=== PATIENT | female | born 1985 | race Caucasian/White ===

== ENCOUNTER 2023-05-02 13:43 | Emergency (ER) | payer SELFPAY ==
[2023-05-02 14:08] VITALS: BP 140/83; PULSE 72; RESP 16; TEMP 36.4; O2SAT 100
== END 2023-05-02 20:00 | disposition left against medical advice (07) ==
DX: R10.9 Unspecified abdominal pain (principal)
CPT/HCPCS: 99199

== ENCOUNTER 2023-08-07 15:34 | Outpatient (CLI) | payer OTHER, SELFPAY ==
[2023-08-07 15:56] LABS: Basophils Percent Auto 0.4 % (0.2-1.2); Eosinophils Absolute Auto 0.4 K/mm3 (0-0.3); Eosinophils Percent Auto 4.4 % (0-4.4); Hematocrit 33.2 % (37.0-47.0); Hemoglobin 10.3 g/dL (12.0-15.0); Immature Granulocyte Absolute 0.03 K/mm3 (0.00-0.031); Immature Granulocyte Percent A 0.4 % (0-0.5); Lymphocytes Absolute Auto 1.82 K/mm3 (0.9-3.2); Lymphocytes Percent Auto 21.8 % (18.3-44.2); Mean Corpuscular Hemoglobin 26.5 pg (26-34); Mean Corpuscular Volume 85.6 fl (80-100); Mean Platelet Volume 9.3 fl (7.4-10.4); Monocytes Absolute Auto 0.7 K/mm3 (0.1-0.6); Monocytes Percent Auto 8.3 % (2.6-8.5); Neutrophils Absolute Auto 5.4 K/mm3 (1.3-6.7); Neutrophils Percent Auto 64.7 % (45.5-73.1); Platelet Count Result 215 k/mm3 (150-375); Red Blood Count 3.88 M/mm3 (4.2-5.4); Red Cell Distribution Width 14.1 % (11.5-14.5); White Blood Count 8.3 K/mm3 (4.5-10.0)
== END 2023-08-07 15:35 | disposition home or self-care (01) ==
PROVIDERS: Visit Provider Obstetrics & Gynecology
DX: Z01.818 Encounter for other preprocedural examination (principal)
CPT/HCPCS: 36415; 85025; 86850; 86900; 86901

== ENCOUNTER 2023-08-09 02:39 | Day surgery (SDC) | payer OTHER, SELFPAY ==
--- NOTE | 2023-08-05 07:13 | P.HP_ITS ---
H&P: HPI History of Present Illness Date/Time: 08/05/23 07:13 Chief Complaint: Pelvic pain enlarged uterus with dyspareunia Narrative: This 38-year-old female who is admitted for hysterectomy and bilateral salping ectomy secondary to enlarged fibroid uterus pelvic pain and dyspareunia. Risks and benefits of this procedure reviewed including but not exclusive of , aspiration pneumonia, bleeding, transfusion, perforation injury to bowel, bladder, ureters, or other internal organs with the need for open laparotomy. She received both the ACOG handout entitled hysterectomy as well as Ativan she and questions answered. She asked to proceed Meds Home Medications and Allergies Allergies Allergy/AdvReac Type Severity Reaction Status Date / Time latex Allergy Mild RASH Verified 09/14/16 17:13 hydrocodone Allergy Unknown NAUSEA/VOMI Verified 09/28/16 09:34 TING Exam Const: General: cooperative, healthy appearing and comfortable Orientation/consciousness: oriented to person, oriented to place and oriented to time HENMT: Head: normal to inspection Chest: Chest palpation & inspection: normal inspection of the chest Resp: Effort & Inspection: normal respiratory effort Cardio: Rate: regular rate Rhythm: regular rhythm Heart sounds: S1 normal heart sound present and S2 normal heart sound present GI: Inspection: normal to inspection : External Female Exam: normal external appearance Speculum Exam - Vagina: normal appearance of the vagina Speculum Exam - Cervix: normal appearance of the cervix Bimanual exam- vagina & uterus: enlarged and Uterine tenderness Bimanual Exam- Adnexa, other: normal adnexae Assessment and Plan Assessment and plan (1) Enlarged uterus: Code(s): N85.2 - Hypertrophy of uterus Status: Acute (2) Pelvic pain: Code(s): R10.2 - Pelvic and perineal pain Status: Acute (3) Uterine fibroid: Code(s): D25.9 - Leiomyoma of uterus, unspecified Status: Acute (4) Dyspareunia: Status: Acute Plan Robotic total vaginal hysterectomy bilateral salpingectomy
[2023-08-06 15:03] VITALS: BMI 30.7
--- NOTE | 2023-08-06 15:16 | PC.NURSE ---
Report to the Outpatient Waiting Room, entrance under the green pavilion located off [facility], at 0730 on 0930. Planned Procedure Time: 09. Time changes happen often and if your time is changed the preop area will call you the afternoon before. - You and your visitor will be asked to self-screen and do not enter if you have any COVID symptoms. - A mask is optional within the hospital at this time. Patients may have clear liquids (water, carbonated beverages, clear teas, apple juice) until 3 hours prior to surgery with a maximum of 20 ounces. - No food from midnight until time of surgery Take the following medications with a SIP of water the morning of surgery: Inhaler, if needed DO NOT STOP ANY OF YOUR OTHER PRESCRIPTION MEDICATIONS PRIOR TO SURGERY ?EXCEPT THE FOLLOWING Medications to discontinue per physician Date to take last dose Please no make-up, nail moldovan, hairspray, perfume, deodorant, or body powder the day of surgery. No jewelry (including any body piercings) or valuables the day of surgery, leave them at home. Please take a shower or bath the night before, or the morning of, surgery with an antibacterial soap. Wear comfortable, loose fitting clothing. - Jewelry must be removed prior to entering the operating room. Rings and piercings that are not removed may be cut off. - The hospital will not accept responsibility for valuables. - Please leave all valuables, including medications, at home the day of surgery. If you are going home after surgery, a licensed parts delivery driver must drive you home. - NO public transportation without another adult if you receive anesthesia. - We recommend that an adult stay with you for 24 hours following discharge. - We also recommend that you do not drive, make important decision, drink alcoholic beverages, or take any drugs that were not prescribed by your health care provider for at least 24 hours after your discharge time. Follow any additional instructions given to you from your surgeon. If you or anyone in your household have experienced Covid symptoms in the past week, please notify your surgeon or the nurse liaison at the phone number below for possible testing. Telephone instructions given to patient and asked if any additional questions and then verbalized understanding. Patient advised to call surgeon office or pre surgery nurse liaison [phone] if any additional questions.
--- NOTE | 2023-08-08 10:10 | WPDANESEPPF ---
Anes - Initial Pre Proc Eval Procedure: Operation Date: 08/09/23 09:30 Proposed Procedures p Robotic Assisted Total Vaginal Hysterectomy with Bilateral Salpingectomy - Lui Rashid MD Date/Time: 08/08/23 10:10 Surgeon: Lui Rashid MD Pre Op Diagnosis: Pelvic Pain, Enlarged Uterus, Fibroids,Dyspareunia Patient Data Age: 38 Gender: F Height: 1.5 m Weight: 68.96 kg Allergies Allergy/AdvReac Type Severity Reaction Status Date / Time latex Allergy Mild RASH Verified 08/06/23 15:02 hydrocodone Allergy Unknown NAUSEA/VOMI Verified 08/06/23 15:02 TING Home Medications Medication Instructions Recorded Confirmed Type albuterol sulfate 90 mcg/actuation 2 puff inhalation Q6H PRN Wheezing 08/06/23 08/06/23 History aerosol inhaler oxycodone-acetaminophen 5 mg-325 1 tablet PO Q4H PRN pain #20 tabs 08/09/23 Rx mg tablet (Percocet) Patient hx anesthesia problems: none Family hx anesthesia problems: none Results Review: All pre-operative results and documents have been reviewed as part of the pre-operative evaluation. [facility] Past Medical History Medical History (Updated 08/08/23 @ 10:15 by Eliud Boogie DO) Asthma Crohn disease Surgical History Surgical History (Updated 08/08/23 @ 10:15 by Eliud Boogie DO) History of tubal ligation Social History Social History Smoking packs per day: 0.5 Smoking cigarettes per day: 10.0 Years smoked: 13 Smoking pack-years: 6.50 Smoking status: Current every day smoker Tobacco type: cigarettes Second hand tobacco smoke exposure: Yes Alcohol intake: current Alcohol use details: 6 beers on weekends Substance use: never Living arrangements: with family Spiritual care concerns: No Anes - Eval Final PreProcedure Day of Procedure 08/08/23 10:10 Patient weight: obese Heart: regular rate and rhythm Lungs: clear to auscultation Airway: Mallampati scale class II Neurological: alert and oriented Last oral intake: >/= 8 hours ASA classification: III Emergent: no Anesthetic plan: proceed Anesthesia type and monitoring: general ETT and standard monitoring Results Review: All pre-operative results and documents have been reviewed as part of the pre-operative evaluation. Informed Consent: The patient's anesthetic plan and its attendant risks and benefits were discussed with the patient/family/POA. Questions were solicited and answers provided to the satisfaction of the patient/family/POA.
[2023-08-09] VITALS (11 sets, daily range): BP systolic 97–132; BP diastolic 55–86; PULSE 59–93; RESP 10–18; TEMP 36.2–37.1; O2SAT 97–100
--- NOTE | 2023-08-09 06:23 | WPDHPUPDATE1 ---
History and Physical Update Update Date/Time: 08/09/23 06:23 History and Physical has been reviewed, including an updated exam of the patient. There are NO changes in the patient's condition. Risks, benefits, and alternatives have been discussed and questions answered. Patient agrees to proceed with procedure.
[2023-08-09] MEDS: LACTATED RINGERS 1,000 ML 30 ML IV CONT ×2 (06:35→08:49)
[2023-08-09] MEDS: KETOROLAC 15 MG/ML VIAL (*BKC) IV PUSH (06:39)
[2023-08-09] MEDS: ACETAMINOPHEN 500 MG TABLET 1000 MG PO (06:39)
[2023-08-09] MEDS: SCOPOLAMINE 1 MG PATCH 1 PATCH TRANSDERM (06:56)
[2023-08-09] MEDS: ceFAZolin 2 GM/D5W 50 ML 2 GM/50 ML BAG IVPB (07:25)
--- NOTE | 2023-08-09 08:39 | PM.DS ---
DS: Admitting Diagnosis Discharge Date 08/10/2023 Admitting Diagnosis enlarged uterus/uterine fibroids/pelvic pain DS: Discharge Diagnosis Discharge Diagnosis (1) Fibroid: Code(s): D21.9 - Benign neoplasm of connective and other soft tissue, unspecified Status: Acute (2) Dyspareunia: Status: Acute (3) Uterine fibroid: Code(s): D25.9 - Leiomyoma of uterus, unspecified Status: Acute (4) Pelvic pain: Code(s): R10.2 - Pelvic and perineal pain Status: Acute (5) Enlarged uterus: Code(s): N85.2 - Hypertrophy of uterus Status: Acute DS: Summary Hospital Course Reason for hospitalization: patient was admitted for robotic hysterectomy bilateral salpingectomy secondary to a markedly enlarged uterus. Hospital Course: Patient underwent robotic robotic hysterectomy and bilateral salpingectomy 12 10/08/2022. Her hospital course unremarkable. She remained afebrile. She was up, voiding without difficulty, eating where diet, ambulating, generally without complaints. Time Spent with Patient Time attestation: Total time spent providing and/or coordinating discharge services: Exam Const: General: cooperative, healthy appearing and comfortable Nutritional Appearance: average body habitus Orientation/consciousness: oriented to person, oriented to place and oriented to time HENMT: Head: normal to inspection Resp: Effort & Inspection: normal respiratory effort Cardio: Rate: regular rate Rhythm: regular rhythm Heart sounds: S1 normal heart sound present and S2 normal heart sound present GI: Inspection: normal to inspection and incision ( Wounds are clean dry and intact) DS: Data Data Completed and Pending Pending studies at discharge: Pending at discharge 08/09/23 08:13 Surgical [PTH] Routine Discharge Plan Discharge Patient Disposition: Home, Self-Care Discharge Instructions: Remove the Scopolamine patch that was placed behind your ear in 72 hours or less. Wash your hands after touching. Stand Alone Forms: General Discharge Instructions Follow-up/Referrals: Lui Abreu MD [Physician] - Discharge Medications: New oxycodone-acetaminophen [Percocet] 5-325 mg tablet 1 tablet PO Q4H PRN (Reason: pain) Qty: 20 0RF No Action albuterol sulfate 90 mcg/actuation HFA aerosol inhaler 2 puff INHALATION Q6H PRN (Reason: Wheezing)
--- NOTE | 2023-08-09 08:40 | W.PM.PROC2 ---
Procedure Note - Detailed Date of Procedure 08/09/23 Pre-op Diagnosis Pelvic Pain, Enlarged Uterus, Fibroids,Dyspareunia Post-op Diagnosis Same Procedure Performed robotic total vaginal hysterectomy bilateral salpingectomy Surgeon Lui Rashid MD Anesthesia General Indications 38-year-old female with a markedly enlarged uterus pelvic pain admitted for hysterectomy and bilateral salpingectomy Findings markedly enlarged uterus. Tubes status post tubal ligation. There fair amount of adhesions anteriorly from her previous section. There was a moderate size benign ovarian cyst which was drained of clear fluid Description of Procedure the patient was prepped draped in the normal sterile fashion placed in supine position. Under excellent general trach anesthesia weighted speculum placed in posterior fornix vagina. Anterior lip of the cervix grasped with single-tooth tenaculum. The uterus sounded to 12cm. Serial dilatation with fragmented dilators performed followed by passes the 10. GAEL and the 3. Cold cut. Next the 16 [place] catheter was placed in the bladder. Weighted speculum and single-tooth. The is the gloves were changed. A supraumbilical incision made the Veress needle passed in the abdomen. Abdomen filled with CO2 gas [id number]. The 8mm trocar advanced in the abdomen. Downside visualized no injury seen. Patient placed in 18? of Trendelenburg and right left lateral quadrant incisions made. 8Mm trocars advanced under direct visualization assuring no injury. Right upper quadrant incision made the 8mm trocar advanced under direct visualization assuring injury. The robot was docked. Attending the console. Multiple adhesions were seen. Anteriorly the omentum was docked and sharply dissected easily away from the anterior abdominal wall in superior portion of the uterus. Bladder was markedly adherent to the near the fundus of the uterus. Using sharp dissection this was layer by layer brought down until the round ligaments could be seen. The round ligament on the left was clamped, burned, cut. The bladder flap was then continued and sharply dissected away from the uterus and cervix in the caudal direction. This was brought to the opposite round ligament which was clamped, burned, cut. Next the left fallopian tube was skeletonized away from the ovarian complex and left attached to the uterine origin. This was repeated with the right tube in the same fashion. The left utero-ovarian ligament was skeletonized conserving left ovary. This was clamped, burned, cut and brought to the level of previously cut round ligament. In similar fashion conserving the right ovary, the utero-ovarian ligament was clamped, burned, cut and brought to the level of previously cut round ligament. The cardinal broad ligaments were then serially skeletonized clamping burning and cutting on the left and bringing these down to the level of the large tortuous blood vessels. These were clamped, burned, cut similar fashion on the right the cardinal broad ligaments were serially skeletonized clamping burning cutting hugging the uterus and cervix until uterine vessels could be seen on the right. These were then clamped, burned, cut. Blanching the uterus was noted in a colpotomy incision made. Uterus cervix and tubes removed through the vagina. The vagina then closed with continuous running 0V lock from lateral edge to lateral edge back to the midline. Irrigation undertaken until clear and the raw surface area sprayed with [place] term. The robot was undocked. The gas removed from the abdomen. The incisions closed with 4-0 Monocryl and glue patient was awakened and went to recovery in satisfactory condition. All sponge, needle, instrument counts were correct. There were no immediate complications noted Estimated Blood Loss 25 Drains No Packing No Pathology Yes Complications No immediate complications Condition Stable Disposition PACU
[2023-08-09] MEDS: fentaNYL CITRATE INJ (*CRX) 100 MCG/2 ML VIAL 25 MCG IV PUSH ×3 (09:15→09:48)
--- NOTE | 2023-08-09 09:19 | SUR.PHASEI ---
0918: Simple mask removed.
--- NOTE | 2023-08-09 09:40 | SUR.PHASEI ---
Floor RN has to call back for report.
--- NOTE | 2023-08-09 09:58 | PC.NURSE ---
This patient, Nereyda Villalba, was received from PACU on 08/09/23 at 0958. Patient/family oriented to unit policies and routines
[2023-08-09] MEDS: DEXTROSE 5%/LACTATED RINGERS 1,000 ML 125 ML IV CONT (10:11)
[2023-08-09] MEDS: KETOROLAC 30 MG/ML VIAL (*BKC) IV PUSH (10:13)
[2023-08-09] MEDS: oxyCODONE/ACETAMINOPHEN (*CRX) 5-325 MG TABLET 1 TABLET PO ×2 (14:09→18:19)
[2023-08-09] MEDS: DOCUSATE SODIUM 100 MG CAPSULE PO (14:10)
[2023-08-10 00:15] VITALS: BP 106/66; PULSE 95; RESP 18; TEMP 37; O2SAT 98
[2023-08-10] MEDS: KETOROLAC 30 MG/ML VIAL (*BKC) IV PUSH (01:07)
[2023-08-10] MEDS: oxyCODONE/ACETAMINOPHEN (*CRX) 5-325 MG TABLET 1 TABLET PO ×2 (01:07→08:29)
[2023-08-10 03:55] VITALS: BP 94/47; PULSE 83; RESP 18; TEMP 37.1; O2SAT 96
[2023-08-10 05:03] LABS: Basophils Percent Auto 0.1 % (0.2-1.2); Eosinophils Absolute Auto 0.1 K/mm3 (0-0.3); Eosinophils Percent Auto 0.4 % (0-4.4); Hematocrit 29.2 % (37.0-47.0); Immature Granulocyte Absolute 0.07 K/mm3 (0.00-0.031); Immature Granulocyte Percent A 0.5 % (0-0.5); Lymphocytes Absolute Auto 1.55 K/mm3 (0.9-3.2); Lymphocytes Percent Auto 11.5 % (18.3-44.2); Mean Corpuscular HGB Conc 30.8 g/dl (32-36); Mean Corpuscular Hemoglobin 26.8 pg (26-34); Mean Corpuscular Volume 86.9 fl (80-100); Mean Platelet Volume 10.1 fl (7.4-10.4); Monocytes Absolute Auto 0.9 K/mm3 (0.1-0.6); Monocytes Percent Auto 6.9 % (2.6-8.5); Neutrophils Absolute Auto 10.9 K/mm3 (1.3-6.7); Neutrophils Percent Auto 80.6 % (45.5-73.1); Platelet Count Result 192 k/mm3 (150-375); Red Blood Count 3.36 M/mm3 (4.2-5.4); Red Cell Distribution Width 14.2 % (11.5-14.5); White Blood Count 13.5 K/mm3 (4.5-10.0)
[2023-08-10 08:30] VITALS: BP 120/70; PULSE 65; RESP 18; TEMP 36.8; O2SAT 100
[2023-08-10] MEDS: ENOXAPARIN 40 MG/0.4 ML SYRINGE SUB-Q (08:30)
[2023-08-10] MEDS: IBUPROFEN 600 MG TABLET PO (08:30)
[2023-08-10] MEDS: DOCUSATE SODIUM 100 MG CAPSULE PO (08:30)
--- NOTE | 2023-08-10 09:25 | PM.GYNPNOP ---
PROJECT MANAGEMENT SPECIALIST - A/P Assessment and plan (1) Dyspareunia: Status: Acute Assessment and Plan: A: POD#1, doing well. P: Home to f/u 2 weeks. (2) Pelvic pain: Code(s): R10.2 - Pelvic and perineal pain Status: Acute (3) Enlarged uterus: Code(s): N85.2 - Hypertrophy of uterus Status: Acute (4) Uterine fibroid: Code(s): D25.9 - Leiomyoma of uterus, unspecified Status: Acute Postoperative Procedures: Procedures Operation Date: 08/09/23 07:30 Actual Procedure Side Surgeon p Robotic Assisted Total Vaginal Hysterectomy with Bilateral Salpingectomy Lui Rashid MD Time Spent With Patient Time: Total time spent is greater than 50% in coordination of care (as documented) at patient's floor/unit and/or counseling patient: Time with patient: less than 15 minutes PROJECT MANAGEMENT SPECIALIST- PN:Subj Post-Op Subjective Date/time seen: 08/10/23 09:25 Interval history: Pain OK. Tolerating diet. Voiding. Would like to go home. Exam Narrative: AVSS I/O OK ABD soft, nontender. Incisions c/d/i. EXT nontender PROJECT MANAGEMENT SPECIALIST - PN: Obj Data Vital Signs Vital Signs: Vital Signs - 24 hr 08/09/23 09:30 08/09/23 09:45 08/09/23 12:21 Temperature 36.5 C 36.8 C Pulse Rate 62 74 72 Respiratory Rate 12 14 16 Blood Pressure 132/77 122/80 121/79 Pulse Oximetry 98 98 97 Oxygen Delivery Room Air Room Air 08/09/23 10:05 08/09/23 15:30 08/09/23 21:08 Temperature 36.2 C L 36.9 C 37.1 C Pulse Rate 67 69 93 Respiratory Rate 18 16 18 Blood Pressure 129/86 111/65 97/55 L Pulse Oximetry 100 98 97 Oxygen Delivery 08/10/23 00:15 08/10/23 03:55 Temperature 37.0 C 37.1 C Pulse Rate 95 83 Respiratory Rate 18 18 Blood Pressure 106/66 94/47 L Pulse Oximetry 98 96 Oxygen Delivery Intake/Output Intake/Output: Intake & Output 08/07/23 08/08/23 08/09/23 08/10/23 23:59 23:59 23:59 23:59 Intake Total 1130 Output Total 455 Balance 675 Meds/Results Medications: Active Medications Generic Name Dose Route Start Last Admin Trade Name Freq PRN Reason Stop Dose Admin Docusate Sodium 100 mg 08/09/23 09:51 08/10/23 08:30 Docusate Sodium 100 Mg Capsule PO 100 mg BID DARIO Administration Enoxaparin Sodium 40 mg 08/09/23 09:51 08/10/23 08:30 Enoxaparin 40 Mg/0.4 Ml Syringe SUB-Q 40 mg DAILY DARIO Administration Dextrose/Lactated Ringer's 1,000 mls @ 125 mls/hr 08/09/23 09:51 08/09/23 10:11 Dextrose 5%/Lactated Ringers IV CONT 125 mls/hr .Q8H DARIO Administration Ibuprofen 600 mg 08/09/23 09:51 08/10/23 08:30 Ibuprofen 600 Mg Tablet PO 600 mg Q6H PRN Administration Cramping Ketorolac Tromethamine 30 mg 08/09/23 09:51 08/10/23 01:07 Ketorolac 30 Mg/Ml Vial (*Bkc) IV PUSH 08/14/23 09:50 30 mg Q6H PRN Administration Pain Rated 4-6 Naloxone HCl 0.1 mg 08/09/23 09:51 Naloxone Hcl 0.4 Mg/Ml Vial IV PUSH Q2M PRN Respiratory rate less than 10 Ondansetron HCl 4 mg 08/09/23 09:51 Ondansetron Inj 4 Mg/2 Ml Vial IV PUSH Q6H PRN Nausea And Vomiting Oxycodone/Acetaminophen 1 tablet 08/09/23 13:54 08/10/23 08:29 Oxycodone/Acetaminophen (*Crx) 5-325 Mg Tablet PO 1 tablet Q4H PRN Administration Pain Rated 6 or Greater Simethicone 80 mg 08/09/23 09:51 Simethicone 80 Mg Tab.Chew PO Q2H PRN Gas Labs 08/10/23 03:39 Labs: Laboratory Results - last 24 hr 08/10/23 03:39 WBC 13.5 H RBC 3.36 L Hgb 9.0 L Hct 29.2 L MCV 86.9 MCH 26.8 MCHC 30.8 L RDW 14.2 Plt Count 192 MPV 10.1 Immature Gran % (Auto) 0.5 Neut % (Auto) 80.6 H Lymph % (Auto) 11.5 L Mora % (Auto) 6.9 Eos % (Auto) 0.4 Baso % (Auto) 0.1 L Lymph # (Auto) 1.55 Mora # (Auto) 0.9 H Eos # (Auto) 0.1 Baso # (Auto) 0.0 Abs Immat Gran (auto) 0.07 H Absolute Neuts (auto) 10.9 H Absolute Nucleated RBC 0.0 Nucleated RBC % 0.0
== END 2023-08-10 10:05 | disposition home or self-care (01) ==
LOC: ANHSURGERY 06:57 → ANHOB2 09:53
PROVIDERS: Visit Provider Obstetrics & Gynecology
PROC: (CPT 58554; principal; 2023-08-09 07:30)
DX: D25.1 Intramural leiomyoma of uterus (principal); D25.2 Subserosal leiomyoma of uterus; N72 Inflammatory disease of cervix uteri; N87.9 Dysplasia of cervix uteri, unspecified; N88.8 Other specified noninflammatory disorders of cervix uteri; R10.2 Pelvic and perineal pain; N73.6 Female pelvic peritoneal adhesions (postinfective); N83.209 Unspecified ovarian cyst, unspecified side; N94.10 Unspecified dyspareunia; J45.909 Unspecified asthma, uncomplicated; K50.90 Crohn's disease, unspecified, without complications; Z79.51 Long term (current) use of inhaled steroids; F17.210 Nicotine dependence, cigarettes, uncomplicated; E66.9 Obesity, unspecified; Z68.30 Body mass index [BMI] 30.0-30.9, adult
CPT/HCPCS: 58554; 58662; S2900; 36415; 85025; 86850; 86900; 86901; 88307; 99199; A9270; J0330; J0690; J1100; J1170; J1650; J1885; J2250; J2405; J2704; J3010; J7030; J7120; J7121

== ENCOUNTER 2024-01-07 12:43 | Outpatient (CLI) | payer OTHER, SELFPAY ==
--- NOTE | ~2024-01-07 | MM_ITS ---
EXAMINATION: MM screening dia BI w martita HISTORY: Screening TECHNIQUE: Craniocaudal and mediolateral oblique 3-D tomosynthesis images were obtained and synthetic 2-D images were generated. CAD analysis was submitted and interpreted. COMPARISON: No prior mammogram is available for comparison at this institution. BREAST PARENCHYMAL COMPOSITION: Not dense: There are scattered areas of fibroglandular density. FINDINGS: There are asymmetries in the upper outer quadrant of the right breast which are partially o bscured by fibroglandular tissue. There is no mammographic evidence for malignancy in the left breast . IMPRESSION: 1. Right breast asymmetries, upper outer quadrant. 2. Additional mammographic views and possible breast ultrasound are recommended. BI-RADS Category 0: Incomplete: Needs additional imaging evaluation. Reviewed, dictated and finalized at location A. IMPRESSION: 1. Right breast asymmetries, upper outer quadrant. 2. Additional mammographic views and possible breast ultrasound are recommended . BI-RADS Category 0: Incomplete: Needs additional imaging evaluation.
== END 2024-01-07 12:44 | disposition home or self-care (01) ==
LOC: CHSIMG 12:45
PROVIDERS: PCP Obstetrics & Gynecology; Visit Provider Obstetrics & Gynecology
DX: Z12.31 Encounter for screening mammogram for malignant neoplasm of breast (principal); R92.8 Other abnormal and inconclusive findings on diagnostic imaging of breast
CPT/HCPCS: 77063; 77067

== ENCOUNTER 2024-01-10 09:40 | Outpatient (CLI) | payer OTHER, SELFPAY ==
--- NOTE | ~2024-01-10 | MMUS_ITS ---
EXAMINATION: MM diagnostic dia RT w martita, US breast RT limited HISTORY: Asymmetric density upper, outer right breast TECHNIQUE: Additional 3-D tomosynthesis images of the upper, outer right were performed and synthetic 2-D images were generated. CAD analysis was submitted and interpreted. High resolution upper, outer right breast ultrasound was performed. COMPARISON: 01/07/2024 FINDINGS: MAMMOGRAPHIC FINDINGS: There are scattered fibroglandular densities. There is partial effacement of the asymmetric density a t the upper, outer right breast with spot compression, with a questionable persistent partially obscu red 7 mm mass. No distortion or suspicious calcification seen. ULTRASOUND: At the 10:00 position right breast, 9 cm from the nipple, there is a 8 mm anechoic benign cyst with p osterior through transmission, wider than tall. No other sonographic lesions seen in the [facility] hospital ed. IMPRESSION: 8 mm benign cyst at the 10:00 position right breast, as detailed above. No findings which are suspicious for malignancy. BI-RADS Category 2: Benign finding(s). Reviewed, dictated and finalized at location M. IMPRESSION: 8 mm benign cyst at the 10:00 position right breast, as detailed above. No findings which are suspicious for malignancy. BI-RADS Category 2: Benign finding(s).
== END 2024-01-10 09:41 | disposition home or self-care (01) ==
LOC: CHSIMG 09:42
PROVIDERS: PCP Obstetrics & Gynecology; Visit Provider Obstetrics & Gynecology
DX: R92.8 Other abnormal and inconclusive findings on diagnostic imaging of breast (principal)
CPT/HCPCS: 76642; 77061; 77065; G0279

== ENCOUNTER 2025-07-28 09:48 | Outpatient (CLI) | payer OTHER, SELFPAY ==
--- NOTE | ~2025-07-28 | MM_ITS ---
EXAMINATION: MM screening dia BI w martita HISTORY: Screening. TECHNIQUE: Craniocaudal and mediolateral oblique 3-D tomosynthesis images were obtained and synthetic 2-D images were generated. CAD analysis was submitted and interpreted. COMPARISON: 2023 BREAST PARENCHYMAL COMPOSITION: Dense: The breasts are heterogeneously dense FINDINGS: No suspicious masses are seen. There are no suspicious calcifications. No unexplained architectural distortion is seen. There are no skin or nipple abnormalities identified. There is no adenopathy seen on the images submitted. IMPRESSION: No mammographic evidence to suggest malignancy is seen. The patient may return to screening mammography as per ACR guidelines. BI-RADS 1 - Negative. Reviewed, dictated and finalized at location C. RWRITING SUPPORT SPECIALIST
== END 2025-07-28 09:49 | disposition home or self-care (01) ==
PROVIDERS: PCP Obstetrics & Gynecology; Visit Provider Obstetrics & Gynecology
DX: Z12.31 Encounter for screening mammogram for malignant neoplasm of breast (principal)
CPT/HCPCS: 77063; 77067